=== PATIENT | male | born 1940 | race Two or more races ===

== ENCOUNTER 2016-11-25 09:20 | Emergency (ER) | payer OTHER ==
[~2016-11-25] VITALS: Ht 157.5 cm; Wt 182.3 kg
[2016-11-25 10:32] VITALS: BP 152/91
== END 2016-11-25 10:32 | disposition home or self-care (01) ==
LOC: ED 09:20
DX: I83.013 Varicose veins of right lower extremity with ulcer of ankle (principal); Z85.038 Personal history of other malignant neoplasm of large intestine

== ENCOUNTER 2016-12-10 11:31 | Emergency (ER) | payer OTHER ==
[~2016-12-10] VITALS: Ht 188 cm; Wt 186.9 kg
[2016-12-10 13:51] LABS: BASOPHIL % 1.8 % (0-2); PLATELET COUNT 201 x10^3mcL (130-400)
[2016-12-10 13:55] LABS: RED CELL DISTRIBUTION WIDTH 15.8 % (11.5-14.5)
[2016-12-10 14:07] LABS: CARBON DIOXIDE 24.8 mmol/L (21-32); CHLORIDE SERUM 105 mmol/L (98-107); CREATININE SERUM 0.7 mg/dL (0.7-1.3); GLUCOSE SERUM 126 mg/dL (74-106); POTASSIUM SERUM 3.9 mmol/L (3.5-5.1); SODIUM SERUM 139 mmol/L (136-145)
[2016-12-10 14:12] LABS: ALBUMIN 3.4 g/dL (3.4-5.0); ALKALINE PHOSPHATASE 68 U/L (46-116); ALT/SGPT 38 U/L (16-63); AST/SGOT 27 U/L (15-37); BILIRUBIN TOTAL 0.42 mg/dL (0.20-1.00); TOTAL PROTEIN, SERUM 7.5 g/dL (6.4-8.2)
[2016-12-10 15:10] VITALS: BP 149/114
== END 2016-12-10 15:10 | disposition home or self-care (01) ==
LOC: ED 11:31
PROVIDERS: Emergency Medicine
DX: I83.019 Varicose veins of right lower extremity with ulcer of unspecified site (principal); Z85.038 Personal history of other malignant neoplasm of large intestine
CPT/HCPCS: 36415; Q0092